=== PATIENT | female | born 1960 | race Caucasian/White ===

== ENCOUNTER → 2020-11-06 | Outpatient (CLI) | payer OTHER ==
[~2020-11-06] MED LIST: ATORVASTATIN CA80 MG PO; CALCIUM 600 +1 EACH PO; CITALOPRAM HBR40 MG PO; CLINDAMYCIN HC300 MG PO; CLOPIDOGREL75 MG PO; COZAAR25 MG PO; EUTHYROX125 MCG PO; FUROSEMIDE40 MG PO; GABAPENTIN300 MG PO; HUMALOG 10100 UNITS/ SC; KETOTIFEN FUMARA5 ML OP; LANTUS INS100 UTS/M1 SQ; NOVOLOG MI100 UNIT/2 SC; OMEPRAZOLE40 MG PO; VITAMIN D21250 MCG PO
== END ==
LOC: NM 09:00
DX: R10.11 Right upper quadrant pain (principal); R93.2 Abnormal findings on diagnostic imaging of liver and biliary tract
CPT/HCPCS: 78226; A9537

== ENCOUNTER → 2020-11-13 | Outpatient (CLI) | payer OTHER | LOC: NM 12:04 | DX: R11.0 Nausea (principal) | CPT/HCPCS: 78264; A9541 ==

== ENCOUNTER → 2020-12-25 | Outpatient (CLI) | payer OTHER | LOC: EXRD 13:06 | DX: L98.9 Disorder of the skin and subcutaneous tissue, unspecified (principal); M79.602 Pain in left arm; M79.89 Other specified soft tissue disorders | CPT/HCPCS: 93971 ==

== ENCOUNTER → 2021-06-17 | Outpatient (CLI) | payer OTHER | LOC: KOH-I 10:36 | DX: M79.672 Pain in left foot (principal); M19.072 Primary osteoarthritis, left ankle and foot; Z98.890 Other specified postprocedural states | CPT/HCPCS: 73630 ==

== ENCOUNTER 2021-11-15 22:13 | Inpatient (IN) | payer OTHER ==
[~2021-11-15] VITALS: Ht 160 cm; Wt 136.1 kg
[~2021-11-15 22:13] MED LIST changes: -ATORVASTATIN CA80 MG PO; -CLOPIDOGREL75 MG PO; -EUTHYROX125 MCG PO; -KETOTIFEN FUMARA5 ML OP; -VITAMIN D21250 MCG PO
[2021-11-16 07:15] LABS: HEMOGLOBIN 11.1 gm/dl (12.3-15.3); RED BLOOD COUNT 4.1 M/UL (4.00-5.10)
--- NOTE | 2021-11-16 17:28 | NUR ---
PATIENT'S BP 79/35. UPON RETURN TO FLOOR FROM PACU, PATIENT'S BP WAS HYPOTENSIVE, ALTHOUGH ANESTHEIA ASSISTED WITH TRANSPORT AND REPORTED IT WAS NOT CONCERNING. SURGERY VITALS PROGRESSED, BP CONTINUED TO BECOME LOWER. CONTACTED DR. RAMOS. PATIENT IS ALERT, ORIENTED X4. NS BOLUS STARTED.
--- NOTE | 2021-11-16 18:38 | NUR ---
DR. RAMOS ON FLOOR TO DISCUSS PATIENT'S HYPOTENSION. NEW ORDER TO ADMINISTER 10 MG MIDODRINE X1 NOW.
[2021-11-17 07:49] LABS: HEMOGLOBIN 10.2 gm/dl (12.3-15.3); RED BLOOD COUNT 3.77 M/UL (4.00-5.10)
[2021-11-17 07:56] LABS: WHITE BLOOD COUNT 14.8 K/UL (4.5-11.0)
[2021-11-18 06:43] LABS: HEMOGLOBIN 8.9 gm/dl (12.3-15.3); WHITE BLOOD COUNT 15.5 K/UL (4.5-11.0)
[2021-11-18 06:44] LABS: RED BLOOD COUNT 3.32 M/UL (4.00-5.10)
[2021-11-18] MEDS ORDERED: NOVOLOG MI100 UNIT/1 SC (16:36)
[2021-11-18] MEDS ORDERED: AMMONIUM LACTA140 GM TOP (16:37)
[2021-11-18] MEDS ORDERED: OZEMPIC0.25 MG/0. SQ (16:37)
[2021-11-18] MEDS ORDERED: FERROUS SULFAT325 MG PO (16:39)
[2021-11-18] MEDS ORDERED: VITAMIN D350 MC3 PO (16:40)
[2021-11-18] MEDS ORDERED: VITAMIN C500 M4 PO (16:41)
[2021-11-18] MEDS ORDERED: SELENIUM200 MC2 PO (16:41)
[2021-11-18] MEDS ORDERED: SYNTHROID137 MCG PO (20:14)
[2021-11-18] MEDS ORDERED: BRILINTA60 MG PO (20:17)
[2021-11-18] MEDS ORDERED: KETOTIFEN FUMARA5 ML EYEBOTH (20:18)
[2021-11-18] MEDS ORDERED: VITAMIN D21250 MCG PO (20:20)
[2021-11-18] MEDS ORDERED: CRESTOR40 MG PO (20:21)
[2021-11-19 07:45] LABS: HEMOGLOBIN 9.1 gm/dl (12.3-15.3); RED BLOOD COUNT 3.33 M/UL (4.00-5.10); WHITE BLOOD COUNT 12.5 K/UL (4.5-11.0)
[2021-11-20 06:27] LABS: HEMOGLOBIN 8.9 gm/dl (12.3-15.3); RED BLOOD COUNT 3.22 M/UL (4.00-5.10); WHITE BLOOD COUNT 11.1 K/UL (4.5-11.0)
[2021-11-20] MEDS ORDERED: HUMIBID LA TAB600 MG PO (13:54)
[2021-11-20] MEDS ORDERED: DOXYCYCLINE HY100 M2 PO (13:58)
[2021-11-20] MEDS ORDERED: ROBITUSSIN DM UD5 ML PO (13:58)
[2021-11-20] MEDS ORDERED: HYDROCODON-ACE1 EAC4 PO (14:04)
[2021-11-20] MEDS ORDERED: DECADRON6 MG PO ×2 (14:04→14:15)
[2021-11-21 06:20] LABS: RED BLOOD COUNT 3.27 M/UL (4.00-5.10); WHITE BLOOD COUNT 11.9 K/UL (4.5-11.0)
[2021-11-21] MEDS ORDERED: CLINDAMYCIN HC300 MG PO (12:48)
[2021-11-21] MEDS ORDERED: LACTINEX TABLET1 EA PO (12:48)
[2021-11-21] MEDS ORDERED: HUMALOG100 UNIT/1 SQ (12:50)
[2021-11-21] MEDS ORDERED: DEX4 GLUCOSE4 GM PO (12:50)
[2021-11-21] MEDS ORDERED: ELIQUIS2.5 MG PO (12:53)
--- NOTE | 2021-11-21 18:25 | NUR ---
PT HAS HAD HIGH BLOOD GLUCOSE READING INTO THE 400S. THE LATEST BLOOD GLUCOSE READING WAS 370. THE MD AND THE STAFF OF THE [facility] HAVE DECIDED THAT THE PT SHOULD STAY AND GET HER BLOOD GLUCOSE UNDER CONTROL BEFORE TRANSPORTING.
[2021-11-22] MEDS ORDERED: HUMALOG100 UNIT/1 SQ ×2 (10:13→10:44)
[2021-11-22] MEDS ORDERED: DECADRON6 MG PO ×2 (10:44→10:46)
== END 2021-11-22 11:17 | DRG 495 ==
LOC: M/S 22:13
PROVIDERS: Internal Medicine; Podiatrist Foot & Ankle Surgery; ADMIT Internal Medicine
PROC: 3E0333Z Introduction of Anti-inflammatory into Peripheral Vein, Percutaneous Approach (ICD-10-PCS; 2021-11-15)
PROC: 0QPK04Z Removal of Internal Fixation Device from Left Fibula, Open Approach (ICD-10-PCS; 2021-11-16)
PROC: 8E0ZXY6 Isolation (ICD-10-PCS; 2021-11-16)
PROC: 0QPH04Z Removal of Internal Fixation Device from Left Tibia, Open Approach (ICD-10-PCS; principal; 2021-11-16 11:46)
DX: T84.196A Other mechanical complication of internal fixation device of bone of right lower leg, initial encounter (principal); U07.1 COVID-19; J12.82 Pneumonia due to coronavirus disease 2019; J96.01 Acute respiratory failure with hypoxia; G93.41 Metabolic encephalopathy; Z68.43 Body mass index [BMI] 50.0-59.9, adult; E03.9 Hypothyroidism, unspecified; E78.5 Hyperlipidemia, unspecified; Y83.8 Other surgical procedures as the cause of abnormal reaction of the patient, or of later complication, without mention of misadventure at the time of the procedure; E66.01 Morbid (severe) obesity due to excess calories; E11.40 Type 2 diabetes mellitus with diabetic neuropathy, unspecified; Z79.01 Long term (current) use of anticoagulants; Z79.4 Long term (current) use of insulin; Z86.73 Personal history of transient ischemic attack (TIA), and cerebral infarction without residual deficits; Z88.1 Allergy status to other antibiotic agents; Z88.2 Allergy status to sulfonamides; Z88.8 Allergy status to other drugs, medicaments and biological substances; Z83.3 Family history of diabetes mellitus; Z82.49 Family history of ischemic heart disease and other diseases of the circulatory system
CPT/HCPCS: 36415; 70450; 71045; 73590; 73600; 73650; 80048; 80053; 82565; 82962; 83036; 83605; 83735; 83880; 85025; 85027; 97110; 97162; 97166; 97530; 97530-GP-CQ; J1650; J1940; J2001; J2250; J2550; J2704; J2795; J3010; J3370; U0002

== ENCOUNTER → 2022-01-09 | Outpatient (CLI) | payer OTHER ==
[~2022-01-09] MED LIST changes: +AMMONIUM LACTA140 GM TOP; +BRILINTA60 MG PO; +CRESTOR40 MG PO; +DECADRON6 MG PO; +DEX4 GLUCOSE4 GM PO; +DOXYCYCLINE HY100 M2 PO; +ELIQUIS2.5 MG PO; +FERROUS SULFAT325 MG PO; +HUMALOG100 UNIT/1 SQ; +HUMIBID LA TAB600 MG PO; +HYDROCODON-ACE1 EAC4 PO; +KETOTIFEN FUMARA5 ML EYEBOTH; +LACTINEX TABLET1 EA PO; +NOVOLOG MI100 UNIT/1 SC; +OZEMPIC0.25 MG/0. SQ; +ROBITUSSIN DM UD5 ML PO; +SELENIUM200 MC2 PO; +SYNTHROID137 MCG PO; +VITAMIN C500 M4 PO; +VITAMIN D21250 MCG PO; +VITAMIN D350 MC3 PO
== END ==
LOC: KOH-I 09:43
DX: M79.671 Pain in right foot (principal); R93.89 Abnormal findings on diagnostic imaging of other specified body structures; R93.6 Abnormal findings on diagnostic imaging of limbs
CPT/HCPCS: 71046; 73630

== ENCOUNTER → 2022-02-20 | Outpatient (CLI) | payer OTHER | LOC: KOH-I 09:09 | DX: S82.891D Other fracture of right lower leg, subsequent encounter for closed fracture with routine healing (principal); X58.XXXD Exposure to other specified factors, subsequent encounter | CPT/HCPCS: 73610 ==